=== PATIENT | male | born 1940 | race Caucasian/White ===

== ENCOUNTER 2017-08-06 21:24 | Emergency (ER) | payer MEDICARE ==
[2017-08-06 21:34] VITALS: BP 152/75
--- NOTE | 2017-08-06 22:09 | UC ---
Neck Pain HPI - HPI Summary HPI Summary: 77 y/o male presents to the urgent care c/o neck pain for the past 2 days, Pa pt thinks he slept on his neck wrong. pt states this started yesterday. the pain is mostly to lt base of skull. pt startes it runs all accross his neck and some into lt shoulder. [ End ] - History of Current Complaint Chief Complaint: UCUpperExtremity Stated Complaint: NECK PAIN-POSS NERVE Time Seen by Provider: 08/06/17 21:59 Hx Obtained From: Patient Onset/Duration Of Injury/Symptoms: Days - 2 days Mechanism Of Injury: No Known Trauma Timing: Constant Onset/Duration: Gradual Onset, Lasting Days - 2 days, Still Present, Worse Since - today Severity: Mild Pain Intensity: 8 - neck pain Pain Scale Used: 0-10 Numeric Location: Discrete At: - B/L neck pain, Radiates To: - B/L shoulder Character: Dull, Spasmotic Aggravating Factors: Movement Alleviating Factors: Heat, OTC Meds Associated Signs & Symptoms: Positive: Nuchal Rigity. 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 - Surgical History Surgical History: None - Family History Known Family History: Positive: Cardiac Disease, Hypertension - Social History Occupation: Employed Part-time Lives: With Family Alcohol Use: Occasionally Substance Use Type: None Smoking Status (MU): Current Some Day Smoker Type: Cigars Amount Used/How Often: 2 cigars weekly Review Of Systems Constitutional: Positive: Negative Skin: Positive: Negative Eyes: Positive: Negative ENT: Positive: Negative Respiratory: Positive: Negative Cardiovascular: Positive: Negative Gastrointestinal: Positive: Negative Genitourinary: Positive: Negative Musculoskeletal: Positive: Decreased ROM - neck, Other: - neck pain Neurological: Positive: Negative Psychological: Positive: Negative All Other Systems Reviewed And Are Negative: Yes Physical Exam - Summary Physical Exam Summary: Vital signs:reviewed General: Patient is a well developed male without any distress that is laying comfortably in the examining table w/o any apparent distress. Skin: Crystal, warm, dry HEAD AND FACE: No signs of trauma. EYES: PERRLA, EOMI x 2. EARS: Hearing grossly intact. MOUTH: Oropharynx within normal limits. Neck: no surface trauma, open wounds, soft tissue, trachea midline, NT over larynx. No subcutaneous emphysema or crepitus. No bony tenderness, no step-off or deformity to firm palpation at posterior midline. Decrease ROM due pain; specially on lateral bending, rotation, no axial load. No meningeal signs, no Kernig's or brudzinskis signs. Decrease ROM on bending forward and Rt lateral bending due to pain. CHEST: Symmetric, no tenderness at palpation LUNGS: CTA bilaterally, no rales, rhonchi or wheezing CVS: RRR, no murmur, rub, or gallop ABDOMEN: soft and Nontender without masses, no guarding or rebound. Bowel sounds are active. No Hepato-splenomegaly. No signs of inguinal hernias. Back: Neurological: WNL Psychological: WNL Skin: dry and warm Triage Information Reviewed: Yes Vital Signs: Initial Vital Signs Temp 97.3 F 08/06/17 21:28 Pulse 65 08/06/17 21:28 Resp 18 08/06/17 21:28 BP 152/75 08/06/17 21:28 Pulse Ox 100 08/06/17 21:28 Neck Pain Course/Dx - Differential Dx/Diagnosis Differential Dx/HQI/PQRI: Arthritis, Sprain, Strain, Torticollis Provider Diagnoses: 1-Neck pain. 2-Spasmodic torticollis. 3-Uncontrol HTN Discharge - Discharge Plan Condition: Stable Disposition: HOME Prescriptions: Acetaminophen TAB* [Tylenol TAB*] 650 mg PO Q6H PRN #30 tab PRN Reason: Pain Cyclobenzaprine TAB* [Flexeril 10 MG TAB*] 10 mg PO TID PRN #14 tab PRN Reason: Spasms - Neck Patient Education Materials: Spasmodic Torticollis (ED), Low-Sodium Diet (ED) Referrals: Jaya Melendez DO [Medical Doctor] - 3 Days Additional Instructions: 1- Please take Tyelnol PO as directed to alleviate pain. 2- Take Flexeril PO as directed for muscle spasm. Please do not drive while taking the medication. first dose dispense tonight. Please take as soon as you get home. 3- Wear cervical collar to alleviate pain. Avoid strenuous exercise or heavy lifting. 4- Please follow up with Orthopedic Dr Garcia or your PCP in 1 week if not improvement of symptoms, for further management. 5- Please f/u PT referral if not improvement of symptoms. 6-Your BP is elevated today. please decrease salt in your diet, monitor BP and if it continues to be elevated please f/u with your PCP for further management
[2017-08-06] MEDS ORDERED: Cyclobenzaprine TAB* 10 MG PO ONE (22:15)
== END 2017-08-06 22:35 | disposition home or self-care (01) ==
LOC: UCCORT 21:24
DX: M54.2 Cervicalgia (principal); G24.3 Spasmodic torticollis; I10 Essential (primary) hypertension; F17.210 Nicotine dependence, cigarettes, uncomplicated; F17.290 Nicotine dependence, other tobacco product, uncomplicated
CPT/HCPCS: 99213; A9270-GY; G0463

== ENCOUNTER 2019-03-31 19:24 | Emergency (ER) | payer MEDICARE ==
[2019-03-31 20:07] VITALS: BP 131/68
--- NOTE | 2019-03-31 20:12 | UC ---
Skin Complaint HPI - HPI Summary HPI Summary: Patient is a 78-year-old male presenting with small tender area of erythema on his right hand that he noticed today. Patient states it is tender to touch. Denies drainage or bleeding. Denies itching. Denies fever, chills, nausea, vomiting. Patient states she and his 9-year-old grandson looked up what it could be on the Internet and became concern for Lyme disease. Patient denies ever having a tick bite. Denies shortness of breath, wheezing, chest pain. Denies myalgia and arthralgia. - History of Current Complaint Chief Complaint: UCSkin Stated Complaint: TICK Hx Obtained From: Patient Onset/Duration: Sudden Onset Pain Intensity: 0 - Allergy/Home Medications Allergies/Adverse Reactions: Allergies Allergy/AdvReac Type Severity Reaction Status Date / Time No Known Allergies Allergy Verified 03/31/19 20:07 Home Medications: Home Medications Cholecalciferol TAB* [Vitamin D TAB*] 1,000 unit PO DAILY 03/31/19 [History Confirmed 03/31/19] Echinacea 380 mg PO DAILY 03/31/19 [History Confirmed 03/31/19] Cruger-3 Fatty Acids/Fish Oil [Fish Oil 1,200 mg Softgel] 2 each PO DAILY [History Confirmed 03/31/19] Valsartan TAB* [Diovan TAB*] 80 mg PO DAILY 03/31/19 [History Confirmed 03/31/19 ] Zinc 50 mg PO DAILY 03/31/19 [History Confirmed 03/31/19] amLODIPine TAB* [Norvasc 5 mg TAB*] 5 mg PO DAILY 03/31/19 [History Confirmed ] PMH/Surg Hx/FS Hx/Imm Hx Cardiovascular History: Hypertension - Surgical History Surgical History: None - Family History Known Family History: Positive: Cardiac Disease, Hypertension - Social History Alcohol Use: Occasionally Substance Use Type: None Smoking Status (MU): Current Some Day Smoker Type: Cigars Amount Used/How Often: 2 cigars weekly Review of Systems All Other Systems Reviewed And Are Negative: Yes Constitutional: Positive: Negative. Negative: Fever, Chills, Fatigue Skin: Positive: Rash Respiratory: Positive: Negative Cardiovascular: Positive: Negative Gastrointestinal: Positive: Negative Neurological: Positive: Negative. Negative: Headache, Weakness, Paresthesia, Numbness Physical Exam Triage Information Reviewed: Yes Appearance: Well-Appearing, No Pain Distress, Well-Nourished Vital Signs: Initial Vital Signs Temp 98.9 F 03/31/19 20:02 Pulse 64 03/31/19 20:02 Resp 16 03/31/19 20:02 BP 131/68 03/31/19 20:02 Pulse Ox 98 03/31/19 20:02 Vital Signs Reviewed: Yes Eyes: Positive: Conjunctiva Clear ENT: Positive: Hearing grossly normal Neck: Positive: Supple Respiratory: Positive: No respiratory distress Cardiovascular: Positive: Pulses Normal, Brisk Capillary Refill Musculoskeletal: Positive: No Edema Neurological: Positive: Alert Psychological: Positive: Age Appropriate Behavior Skin: Positive: Other - 1cm circular area of erythema noted on dorsal R hand. no pustule. no drainage or fluctuance. mild tenderness to palpation. Course/Dx - Course Course Of Treatment: Patient symptoms and physical exam findings consistent with folliculitis or cellulitis. When recommending treatment with antibiotics, patient stated he preferred not to take antibiotics if he does not have to. I provided him with a prescription for Keflex, and outline was drawn around the redness here, and instructed him to take it if redness worsens by tomorrow. I instructed to apply warm compresses and follow-up with PCP if symptoms persist. Instructed to go to ED if he experiences significant increasing redness or warmth, drainage , severe pain, fever, chills, nausea, or vomiting. Patient voiced understanding and agreed with the treatment plan. - Diagnoses Provider Diagnosis: Cellulitis Discharge ED - Sign-Out/Discharge Documenting (check all that apply): Patient Departure All imaging exams completed and their final reports reviewed: No Studies - Discharge Plan Condition: Stable Disposition: HOME Prescriptions: Cephalexin CAP* [Keflex CAP*] 500 mg PO TID #15 cap Patient Education Materials: Cellulitis (ED) Referrals: Devyn Wheeler DO [Primary Care Provider] - If Needed Additional Instructions: A gambell has been drawn around the area of redness on your hand. If the redness worsens by tomorrow, fill the prescription for Keflex to treat cellulitis and take it as prescribed. Apply warm soaks to the area twice daily. Follow up with your primary care physician listed below if your symptoms persist. Go to the emergency room if you experience fever, significant increasing redness and warmth to the area, increasing pain, drainage, or nausea and vomiting. - Billing Disposition and Condition Condition: STABLE Disposition: Home
== END 2019-03-31 20:39 | disposition home or self-care (01) ==
LOC: UCCORT 19:24
DX: L03.113 Cellulitis of right upper limb (principal); I10 Essential (primary) hypertension; F17.210 Nicotine dependence, cigarettes, uncomplicated; Z79.899 Other long term (current) drug therapy
CPT/HCPCS: 99212; G0463